=== PATIENT | male | born 1960 | race Caucasian/White ===

== ENCOUNTER 2017-05-18 10:33 | Emergency (ER) | payer SELFPAY ==
[2017-05-18 11:54] LABS: Hematocrit 53.3 % (42.0-52.0); Hemoglobin 18.3 gm/dL (13.5-18.0); Mean Cell Volume 96.4 fl (78-100); Mean Corpuscular Hemoglobin 33.1 pg (27-31); Mean Corpuscular Hgb Conc 34.3 g/dl (32-36); Mean Platelet Volume 9.5 fl (6.0-9.5); Platelet Count 231 K/mm3 (150-450); Red Blood Count 5.53 M/mm3 (4.7-6.0); Red Cell Distribution Width 12.6 % (11.5-14.0); White Blood Count 5.1 K/mm3 (4.0-10.5)
[2017-05-18 12:09] LABS: Total Cells Counted 100
--- NOTE | 2017-05-18 12:09 | ERNOTE ---
Medical Problem HPI - General Chief Complaint: Flu Symptoms Time Seen by Provider: 05/18/17 11:05 Source: patient, family Exam Limitations: no limitations - Immun/Allergies/Home Medications Immunizations: IMMUNIZATION HX Immunizations Up to Date Yes History of Influenza Vaccine No Allergies/Adverse Reactions: Allergies No Known Allergies Allergy (Unverified 05/18/17 11:11) Home Medications: HOME MEDICATIONS Azithromycin [Zithromax] 250 mg PO DAILY #6 tablet 05/18/17 [Last Taken Unknown] Humalog 05/18/17 [Last Taken Unknown] Insulin Glargine,Hum.rec.anlog [Lantus] 10 units SC DAILY 05/18/17 [Last Taken Unknown] - History of Present History Narrative: Patient presents with 4 days of cough and congestion. He states that with every cough he is having burning chest discomfort. He also complains of a sore throat and nasal congestion. Timing: constant Severity: moderate Review of Systems - Review of Systems Constitutional: Present: See HPI EYE: Present: no symptoms reported ENT: Present: nose congestion, sore throat Respiratory: Present: See HPI, cough Cardiology: Present: no symptoms reported Gastrointestinal/Abdominal: Present: no symptoms reported Genitourinary: Present: no symptoms reported Musculoskeletal: Present: no symptoms reported Skin: Present: no symptoms reported Neurological: Present: no symptoms reported Endocrine: Present: no symptoms reported Hematologic/Lymphatic: Present: no symptoms reported Psych: Present: no symptoms reported - Patient's Past Medical History Patient History - Medical: No pertinent hx, Diabetes Type 2 Insulin Dependent Patient History - Cardiac/Respiratory: No pertinent hx Patient History - Cancer: No Hx of Cancer Patient History - Surgical Procedures: Back Surgery Patient History - Other: None - Social History Living Situations: home Abuse History: No History of abuse Psych History: No pertinent hx Smoking Status: Never smoker Have you smoked in the past 12 months: Yes - thc Alcohol Use: occasionally Drug Use: marijuana - Immunizations Immunizations Up to Date: Yes History of Influenza Vaccine: No Physical Exam - Physical Exam General Appearance: Present: wd/wn, alert, moderate distress Head Exam: Present: normal inspection, no evidence of injury Eye Exam: Normal inspection: bilateral, PERRL: bilateral Ears, Nose, Throat: Present: pharyngeal erythema, other - coated tongue Neck: Present: normal inspection, nontender, lymphadenopathy (R), lymphadenopathy (L) - anterior cervical lymphadenopathy Respiratory: Present: no accessory muscle use, chest nontender, respiratory distress, other - plan coarse breath sounds Cardiovascular/Chest: Present: no murmur, normal peripheral pulses, tachycardia Gastrointestinal/Abdominal: Present: normal bowel sounds, nontender, nondistended, soft, no organomegaly Rectal Exam: Present: deferred Back Exam: Present: normal inspection, normal range of motion Extremity Exam: Present: normal inspection, non-tender, no edema, normal range of motion Neurological Exam: Present: alert, oriented, normal mood/affect Skin Exam: Present: normal color, warm/dry Lymphatic Exam: Present: no adenopathy ED Progress - Results and Orders Patient's Lab Results:: I have reviewed the patient's lab results. - Vital Signs Patient's Vital Signs:: I have reviewed the patient's vital signs. Vital Signs: Vital Signs 05/18/17 05/18/17 11:05 11:52 Temperature 36.6 C Pulse Rate 112 H 108 H Respiratory 18 15 Rate Blood Pressure 105/69 104/60 O2 Sat by Pulse 100 98 Oximetry - X-Ray X-Ray #1 X-Ray: chest Interpretation: Reviewed by me - Progress/Reassessment Chief Complaint: Flu Symptoms Plan - Plan Plan: While the patient tested negative for influenza he certainly has appears to have an upper respiratory infection and will be started on Z-Joshua he and his have both been given cough medicine Departure Clinical Impression: Upper respiratory infection Qualifiers: URI type: unspecified URI Qualified Code(s): J06.9 - Acute upper respiratory infection, unspecified - Departure Disposition: Home self-care Condition: Good Instructions: Influenza, Adult, [id number] Referrals: Steve Card MD [Primary Care Provider] - Prescriptions: Azithromycin [Zithromax] 250 mg PO DAILY #6 tablet
[2017-05-18 12:15] LABS: Albumin * 3.5 gm/dl (3.4-5.0); Anion Gap 15.3 mmol/L (6.8-13.8); BUN/Creatinine Ratio 11.5 (9.0-21.6); Bilirubin, Total 0.3 mg/dL (0.0-1.1); Ca. Corrected For Albumin 9.6 mg/dL (8.4-10.2); Calcium * 9.5 mg/dL (7.9-10.9); Carbon Dioxide 25.5 mmol/L (24-32.6); Potassium 3.8 mmol/L (3.4-4.6); Total Protein 7.9 gm/dL (6.2-8.2)
[2017-05-18 12:19] LABS: Atypical (Reactive) Lymph 2 % (0-2); Band 13 % (0-2.0); Lymphocyte 38 % (20-51); Monocyte 6 % (0-9); Neutrophil 41 % (42-75); Neutrophil # 2.1 K/mm3 (1.3-6.0); Platelet Estimate Normal (NORMAL); RBC Morphology Normal (NORMAL)
[2017-05-18] MEDS ORDERED: HYDROcodone/ACETAMINOPHEN 1 EACH TABLET PO ONE (13:46)
[2017-05-18] MEDS ORDERED: HYDROcodone/ACETAMINOPHEN 1 EACH TABLET ONE (13:53)
[2017-05-18 16:04] VITALS: BP 110/62
== END 2017-05-18 14:53 | disposition home or self-care (01) ==
LOC: ER 10:33
DX: J06.9 Acute upper respiratory infection, unspecified (principal); E11.9 Type 2 diabetes mellitus without complications; Z79.4 Long term (current) use of insulin